=== PATIENT | male | born 1975 | race Caucasian/White ===

== ENCOUNTER 2024-07-26 19:32 | Emergency (ER) | payer OTHER, SELFPAY ==
[2024-07-26 19:33] VITALS: BP 132/83
--- NOTE | 2024-07-26 19:43 | ED.GENMED ---
History of Present Illness
General
Chief Complaint: Skin Problem
Source: patient
Exam Limitations: none
Time Seen by Provider: 07/26/24 19:38
History of Present Illness
History of Present Illness:
See MDM
Past History
Past History
ED Past Medical History: Psychiatric (anxiety) and Other (Previous right knee reconstruction)
ED Past Surgical History: Orthopedic
Social History
Tobacco: Smoker
Alcohol: Occasional
Family History
Family History: CAD and Unable to obtain
Phy Exam
Physical Exam
Physical Exam:
See MDM
Course
Vital Signs
Initial and Last Documented VS:
Initial Vital Signs
Temp Pulse Resp BP Pulse Ox
98.2 F 65 18 132/83 96
07/26/24 19:33 07/26/24 19:33 07/26/24 19:33 07/26/24 19:33 07/26/24 19:33
Last Documented Vital Signs
Temp Pulse Resp BP Pulse Ox
98.2 F 65 18 132/83 96
07/26/24 19:33 07/26/24 19:33 07/26/24 19:33 07/26/24 19:33 07/26/24 19:33
Procedures
Laceration Closure
Left Distal Palmar Thumb:
Status of Wound: clean
Size of Wound in cm: 2.5
Description of Wound Edges: sharp
Preparation: cleaned with soap & water
Anesthesia: 1% Lidocaine
Revision/Debridement: routine- no revision
Wound exploration: explored to base- no FB
Type of Closure: single layer closure
Skin Closure Material: 4-0 nylon
Number of sutures: 2
MDM/Problems Addressed
Differential Diagnosis Includes:
HPI and MDM Narrative:
49-year-old male presenting with left thumb laceration injury. Patient was using his knife and accidentally stabbed his left thumb. He is right-hand dominant. Denies numbness or tingling he denies being on blood thinners. He denies propofol self
injury. On exam, there is a 2.5 cm laceration to the of his left thumb. The finger is otherwise neurovascularly intact. No clinical evidence of tendon injury. Cap refill less than 2 seconds. Patient states tetanus is up-to-date
After the wound was numbed, 2 stitches placed. Patient tolerated procedure well
Physical exam
General: Well appearing and non-toxic
HEENT: protecting airway
Neck: appears supple
CV: No evidence of cyanosis
Resp: No accessory muscle use
Abd: Non-distended
Extremities: Small laceration to left thumb but thumb is neurovascularly intact
Neuro: alert
Psych: Normal affect
Skin: 2.5 cm linear laceration to pulp of left thumb
Problems Addressed including Acute and Chronic Conditions affecting care:
1. Left thumb laceration
Acuity: acute
Prognosis: stable
Details: 2 stitches placed.
Differential Diagnosis (but not limited to): Abrasion, laceration
Testing considered: Thumb x-ray
Drug therapy (if applicable): OTC meds, please see d/c instruction regarding Rx drugs
Amount and/or Complexity of Data Reviewed
Clinical info obtained from: Patient
External data reviewed: N/A
Labs I independently reviewed (but not limited to): N/A
Radiology: N/A
Pulse Ox: not hypoxic
EKG independently reviewed: N/A
Shop Welder: N/A
Critical Care: N/A
Risk of Complication:
Social Determinants of health: Good social support
Discussed with other providers: N/A
Escalation of Care includes Admit/Obs: After being observed in the Emergency Department, pt stable for discharge.
Occasional wrong word or 'sound a like' substitutions may have occurred due to the inherent limitations of voice recognition software. Read the chart carefully and recognize, using context, where substitutions have occurred.
*Critical Care Note
Total Time (30-74mins, 75-104mins- exclusive of procedures): Not Applicable
ED Attending Note
-
Portions of this chart may have been created with voice recognition software.� Occasional wrong word or��sound alike� substitutions may have occurred due to the inherent limitations of voice recognition software.
Discharge Plan
Departure
Patient Disposition: Home (Routine Discharge)
Date of Disposition: 07/26/24
Time of Disposition: 19:43
Patient with high blood pressure during this ER visit?: No
Discharge Problem:
Laceration of finger of left hand
Instructions: Wound care - ED discharge instructions
Prescriptions:
No Action
benzonatate [Tessalon Perles] 100 MG capsule
1 tab PO Q8H
omeprazole [Prilosec] 20 MG capsule,delayed release(DR/EC)
1 tab PO DAILY
Effexor
150 mg PO DAILY
Z-Pack
250 mg PO DAILY
albuterol sulfate 1 PUFF HFA aerosol inhaler
2 puff inhalation R Q4HPRN PRN (Reason: wheezing) Qty: 1 0RF
prednisone 20 MG tablet
40 mg PO DAILY Qty: 10 0RF
hydrocodone-homatropine [Hycodan (with homatropine)] 5 ML syrup
10 ml PO Q4HPRN PRN (Reason: cough) Qty: 120 0RF
oxycodone 5 MG tablet
5 mg PO Q4HPRN PRN (Reason: pain) Qty: 20 0RF
Activity Restrictions/Additional Instructions:
Keep wound clean and dry, change dressing if it becomes soiled or wet. Watch for signs of infection: fever over 100.5', increasing pain, red streaks around wound, swelling, drainage of pus, or bad smell. If any of these happen, return to ED
promptly. Return to ED or make an appointment with your doctor to have the 2 sutures removed in 7 days. All wounds may scar, however you may reduce the appearance of scarring by avoiding sun exposure to the scar and applying skin moisturizer with
spf protection to the scar once the wound is healed.
Interventions
Interventions:
*Risk Screen - Suicide Last Done: 07/26/24 19:44
*General Assessment Last Done: 07/26/24 19:33
*Neglect/Abuse Screening Last Done: 07/26/24 19:44
*ED COVID-19 Vaccine History Last Done: 07/26/24 19:44
ED-Skin Assessment Last Done: 07/26/24 19:44
Discharge Date and Time
Print Language: NIUEAN
== END 2024-07-26 20:32 | disposition home or self-care (01) ==
LOC: EMR 19:32
PROVIDERS: EMERGENCY PHYSICIAN Student in an Organized Health Care Education/Training Program; FAMILY PHYSICIAN Family Medicine
DX: S61.012A Laceration without foreign body of left thumb without damage to nail, initial encounter (principal); W26.0XXA Contact with knife, initial encounter; F17.200 Nicotine dependence, unspecified, uncomplicated
CPT/HCPCS: 12001; 99282